=== PATIENT | female | born 1965 | race Caucasian/White ===

== ENCOUNTER → 2019-10-22 15:59 | Outpatient (CLI) | payer OTHER, SELFPAY ==
[2019-10-24 07:07] LABS: HEPATITIS B SURFACE AG Negative (Negative); Hepatitis A AB, Total Negative (Negative); Hepatitis A IgM Antibody Negative (Negative); Hepatitis B Core AB IgM Negative (Negative); Hepatitis B Core Ab Total Negative (Negative); Hepatitis C Ab <0.1 s/co ratio (0.0-0.9)
[2019-10-24 08:59] LABS: Hep B Surface Antibodies Non Reactive (.)
== END ==
PROVIDERS: Referring Provider Dermatology Pediatric Dermatology; Visit Provider Dermatology Pediatric Dermatology
DX: L66.8 Other cicatricial alopecia (principal); L82.1 Other seborrheic keratosis; D22.5 Melanocytic nevi of trunk; L81.4 Other melanin hyperpigmentation; Z85.828 Personal history of other malignant neoplasm of skin; L57.8 Other skin changes due to chronic exposure to nonionizing radiation; Z71.1 Person with feared health complaint in whom no diagnosis is made; L40.0 Psoriasis vulgaris; R60.0 Localized edema; L81.8 Other specified disorders of pigmentation; L43.8 Other lichen planus
CPT/HCPCS: 36415; 86704; 86705; 86706; 86708; 86709; 86803; 87340

== ENCOUNTER → 2021-02-16 12:14 | Outpatient (CLI) | payer OTHER, SELFPAY ==
[2021-02-19 15:08] LABS: Red Blood Cell Count Test/G6PD 3.62 x10E6/uL (3.77-5.28)
[2021-02-19 16:15] LABS: G6PD Quant Test 313 (127-427)
== END ==
PROVIDERS: Referring Provider Dermatology Pediatric Dermatology; Visit Provider Dermatology Pediatric Dermatology
DX: L43.8 Other lichen planus (principal); L66.8 Other cicatricial alopecia
CPT/HCPCS: 36415; 82955